=== PATIENT | male | born 1975 | race Caucasian/White ===

== ENCOUNTER 2019-12-19 19:25 | Emergency (ER) | payer BC ==
[~2019-12-19] VITALS: Ht 177.5 cm; Wt 77.2 kg
[~2019-12-19 19:25] MED LIST: AMIT100T2 PO; BNZ20T PO; CPR500T PO; DOXY100C2 PO; LEVO500T69 PO; PROP60CA17 PO; SULF1TAB38 PO; SUMA100T2 PO; TRM50T PO
[2019-12-19] MEDS ORDERED: fentaNYL INJECTION 100 MCG/2 ML AMP IVP ONE (19:45)
[2019-12-19] MEDS ORDERED: CLINDAMYCIN 900 MG/50 ML IVPB 50 ML IV ONE (19:45)
[2019-12-19] MEDS ORDERED: LIDOCAINE 1% INJ 20 ML 20 ML VIAL INJ ONE (19:45)
[2019-12-19 19:51] LABS: BASOPHILS % (AUTO) 0 % (0-10); EOSINOPHILS # (AUTO) 0.2 10^3/uL (0.0-0.3); EOSINOPHILS % (AUTO) 2 % (0-10); HEMATOCRIT 41 % (40-54); HEMOGLOBIN 14.2 G/DL (13.3-17.7); LYMPHOCYTES # (AUTO) 1.7 X 10^3 (1.0-4.0); LYMPHOCYTES % (AUTO) 16 % (12-44); MEAN CORPUSCULAR HEMOGLOBIN 28 PG (25-34); MEAN CORPUSCULAR HGB CONC 35 G/DL (32-36); MEAN CORPUSCULAR VOLUME 81 FL (80-99); MEAN PLATELET VOLUME 8.8 FL (7.4-10.4); MONOCYTES # (AUTO) 0.9 X 10^3 (0.0-1.0); MONOCYTES % (AUTO) 9 % (0-12); NEUTROPHILS # (AUTO) 7.6 X 10^3 (1.8-7.8); NEUTROPHILS % (AUTO) 73 % (42-75); PLATELET COUNT 312 10^3/uL (130-400); RED CELL DISTRIBUTION WIDTH 14.2 % (10.0-14.5); WHITE BLOOD COUNT 10.4 10^3/uL (4.3-11.0)
--- NOTE | 2019-12-19 19:53 | ED Integumentary General ---
General Chief Complaint: Skin/Wound Problems Stated Complaint: INFECTION IN LEFT LEG Nursing Triage Note: on evening pt noticed wound to LLE, was seen on wednesday at [facility], was given bactrim, saw PCP was on Wednesday and was told that the current abt would take care of wound, swelling has now doubled in size Source: patient Exam Limitations: no limitations History of Present Illness Date Seen by Provider: Dec 19, 2019 Time Seen by Provider: 19:51 Initial Comments To ER with left lower extremity wound. No known cause, this was seen at the [facility], given Bactrim. Followed up with primary care yesterday and told that it should be getting better, he is now been on Bactrim for 4 days with only worsening. Afebrile. Timing/Duration: just prior to arrival Severity: moderate Associated Symptoms: rash Allergies and Home Medications Allergies Coded Allergies: Penicillins (Unverified Allergy, Unknown, 03/14/12) Home Medications Amitriptyline Hcl 100 Mg Tablet, 0.5 EACH PO DAILY, (Reported) Benazepril Hcl 20 Mg Tablet, 1 EACH PO DAILY, (Reported) Doxycycline Hyclate 100 Mg Tablet, 100 MG PO BID Prescribed by: YUDELKA HEART on 12/19/192037 Levofloxacin 500 Mg Tab, 1 EACH PO DAILY Prescribed by: OSCAR AHUMADA on 10/01/142108 Propranolol Hcl 60 Mg Cap.sa.24h, 60 MG PO DAILY, (Reported) Sumatriptan Succinate 100 Mg Tablet, 0 PO UD, (Reported) 1 TAB AT ONSET OF BULLARD; MAY REPEAT X 1 IN 2 HOURS Patient Home Medication List Home Medication List Reviewed: Yes Review of Systems Review of Systems Constitutional: see HPI; No chills EENTM: see HPI Respiratory: no symptoms reported Cardiovascular: no symptoms reported Genitourinary: no symptoms reported Musculoskeletal: no symptoms reported Skin: no symptoms reported Psychiatric/Neurological: No Symptoms Reported Endocrine: No Symptoms Reported Past Rbpyerl-Tmvzlz-Qcqkww Hx Patient Social History Alcohol Use: Denies Use Recreational Drug Use: No 2nd Hand Smoke Exposure: No Recent Foreign Travel: No Contact w/Someone Who Travel: No Recent Infectious Disease Expo: No Recent Hopitalizations: No Immunizations Up To Date Tetanus Booster (TDap): Less than 5yrs Seasonal Allergies Seasonal Allergies: No Past Medical History Surgeries: Yes (R hand, L knee) Respiratory: No Cardiac: No Neurological: No Genitourinary: No Gastrointestinal: No Musculoskeletal: No Endocrine: No HEENT: No Cancer: No Psychosocial: No Integumentary: No Blood Disorders: No Physical Exam Vital Signs Vital Signs - First Documented 12/19/19 19:32 Temp 37.3 Pulse 92 Resp 18 B/P (MAP) 131/89 (103) Capillary Refill : Less Than 3 Seconds General Appearance: WD/WN, no apparent distress Neck: non-tender, full range of motion Respiratory: no respiratory distress, no accessory muscle use Extremities: normal range of motion, non-tender Neurologic/Psychiatric: alert, normal mood/affect, oriented x 3 Skin: normal color, warm/dry Skin Problem Location: lower extremities (left lateral lower extremity there is an area of erythema that is about hand sized and within this is a 3 cm circular area of fluctuance.) Skin Problem Character: abscess Procedures/Interventions I&D : Blade Size: 11 Packing/Drain: Plain Packing 1/2 Progress Moderate amount of purulent bloody material expressed Progress/Results/Core Measures Results/Orders Lab Results Laboratory Tests Test 12/19/19 19:42 Range/Units White Blood Count 10.4 4.3-11.0 10^3/uL Red Blood Count 5.01 4.35-5.85 10^6/uL Hemoglobin 14.2 13.3-17.7 G/DL Hematocrit 41 40-54 % Mean Corpuscular Volume 81 80-99 FL Mean Corpuscular Hemoglobin 28 25-34 PG Mean Corpuscular Hemoglobin Concent 35 32-36 G/DL Red Cell Distribution Width 14.2 10.0-14.5 % Platelet Count 312 130-400 10^3/uL Mean Platelet Volume 8.8 7.4-10.4 FL Neutrophils (%) (Auto) 73 42-75 % Lymphocytes (%) (Auto) 16 12-44 % Monocytes (%) (Auto) 9 0-12 % Eosinophils (%) (Auto) 2 0-10 % Basophils (%) (Auto) 0 0-10 % Neutrophils # (Auto) 7.6 1.8-7.8 X 10^3 Lymphocytes # (Auto) 1.7 1.0-4.0 X 10^3 Monocytes # (Auto) 0.9 0.0-1.0 X 10^3 Eosinophils # (Auto) 0.2 0.0-0.3 10^3/uL Basophils # (Auto) 0.0 0.0-0.1 10^3/uL Sodium Level 134 L 135-145 MMOL/L Potassium Level 4.0 3.6-5.0 MMOL/L Chloride Level 97 L 98-107 MMOL/L Carbon Dioxide Level 26 21-32 MMOL/L Anion Gap 11 5-14 MMOL/L Blood Urea Nitrogen 12 7-18 MG/DL Creatinine 1.25 0.60-1.30 MG/DL Estimat Glomerular Filtration Rate > 60 BUN/Creatinine Ratio 10 Glucose Level 95 70-105 MG/DL Lactic Acid Level 0.91 0.50-2.00 MMOL/L Calcium Level 9.8 8.5-10.1 MG/DL Corrected Calcium 9.6 8.5-10.1 MG/DL Total Bilirubin 0.5 0.1-1.0 MG/DL Aspartate Amino Transf (AST/SGOT) 52 H 5-34 U/L Alanine Aminotransferase (ALT/SGPT) 66 H 0-55 U/L Alkaline Phosphatase 200 H 40-136 U/L Total Protein 8.2 6.4-8.2 GM/DL Albumin 4.3 3.2-4.5 GM/DL My Orders Orders - YUDELKA HEART APRN Cbc With Automated Diff (12/19/19 19:45) Comprehensive Metabolic Panel (12/19/19 19:45) Ed Iv/Invasive Line Start (12/19/19 19:45) Blood Culture (12/19/19 19:45) Lactic Acid Analyzer (12/19/19 19:45) Fentanyl Injection (Sublimaze Injection (12/19/19 19:45) Clindamycin 900 Mg/50 Ml Ivpb (Cleocin P (12/19/19 19:45) Lidocaine 1% Inj 20 Ml (Xylocaine 1% Inj (12/19/19 19:45) Wound Culture (12/19/19 19:45) Vancomycin Injection (Vancomycin Injecti (12/19/19 20:00) Vancomycin Injection (Vancomycin Injecti (12/19/19 20:30) Medications Given in ED Current Medications Medications Dose Ordered Sig/Stephon Route Start Time Stop Time Status Last Admin Dose Admin Fentanyl Citrate 50 mcg ONCE ONCE IVP 12/19/19 19:45 12/19/19 19:47 DC 12/19/19 19:53 50 MCG Vancomycin HCl 1500 mg/Sodium Chloride 500 ml @ 257.5 mls/ hr ONCE ONCE IV 12/19/19 20:30 12/19/19 22:26 12/19/19 20:30 257.5 MLS/HR Vital Signs/I&O 12/19/19 19:32 Temp 37.3 Pulse 92 Resp 18 B/P (MAP) 131/89 (103) Blood Pressure Mean: 103 Departure Communication (Admissions) 2033-He is not febrile tachycardic or hypotensive. His labs do not support sepsis. I did incision and drainage of the wound, packed it with half-inch plain packing after irrigating the cavity with 60 cc of sterile saline. Covered with gauze. He is getting 1.5 g vancomycin IV and I will discharge him to home alvin nging the Bactrim to the doxycycline. He agrees to return tomorrow night for wound check and if no improvement he will need to be admitted for IV antibiotics. Impression Primary Impression: Abscess Additional Impression: Cellulitis Qualified Codes: L03.012 - Cellulitis of left finger Disposition: HOME, SELF-CARE Condition: Stable Departure-Patient Inst. Decision time for Depature: 20:35 Referrals: CHARLES HERNANDEZ DO (PCP/Family) Primary Care Physician Patient Instructions: Abscess Incision and Drainage (DC) Add. Discharge Instructions: 1. Return tomorrow evening about 24 hours from now for wound check no charge. When you check and told them that you just need a wound check and were seen here tonight. If you fail to improve between now and then you may need to be admitted for continued IV antibiotics. Stop the Bactrim, start the doxycycline starting tomorrow. All discharge instructions reviewed with patient and/or family. Voiced understanding. Scripts Doxycycline Hyclate (Doxycycline Hyclate) 100 Mg Tablet 100 MG PO BID, #20 TAB 0 Refills Prov: YUDELKA HEART APRN 12/19/19 Work/School Note: Work Release Form Date Seen in the Emergency Department: Dec 19, 2019 Return to Work: Dec 20, 2019 YUDELKA HEART APRN Dec 19, 2019 19:53
[2019-12-19] MEDS ORDERED: VANCOMYCIN INJECTION 1,000 MG in NS (IVPB) 250 ML IV SCH (20:00)
[2019-12-19 20:10] LABS: ALANINE AMINOTRANSFERASE 66 U/L (0-55); ALBUMIN 4.3 GM/DL (3.2-4.5); ALKALINE PHOSPHATASE 200 U/L (40-136); BILIRUBIN,TOTAL 0.5 MG/DL (0.1-1.0); BUN/CREATININE RATIO 10; CALCIUM 9.8 MG/DL (8.5-10.1); CARBON DIOXIDE 26 MMOL/L (21-32); CHLORIDE 97 MMOL/L (98-107); CREATININE SERUM 1.25 MG/DL (0.60-1.30); GFR ESTIMATED > 60; GLUCOSE 95 MG/DL (70-105); SODIUM 134 MMOL/L (135-145); TOTAL PROTEIN 8.2 GM/DL (6.4-8.2)
--- NOTE | 2019-12-19 20:15 | NUR ---
assisted provider with wound care, wound culture obtained and sent to lab at this time
[2019-12-19] MEDS ORDERED: VANCOMYCIN INJECTION 1,500 MG in NS IV 500 ML 500 ML IV ONE (20:30)
[2019-12-19] MEDS ORDERED: DOXY100T2 PO (20:38)
--- NOTE | 2019-12-19 20:54 | NUR ---
report given to Ly HIGH
[2019-12-19 22:44] VITALS: BP 120/89
== END 2019-12-19 22:44 | disposition home or self-care (01) ==
LOC: EDUNIT# 19:25 → ER 19:28
DX: L02.512 Cutaneous abscess of left hand (principal); L03.012 Cellulitis of left finger; Z88.0 Allergy status to penicillin
CPT/HCPCS: 36415; 80053; 83605; 85025; 87040; 87070; 87077; 87186; 87205; 96365; 96366; 96375

== ENCOUNTER 2019-12-20 18:16 | Emergency (ER) | payer BC ==
[~2019-12-20] VITALS: Ht 180 cm; Wt 77.0 kg
[~2019-12-20 18:16] MED LIST changes: +DOXY100T2 PO
--- NOTE | 2019-12-20 18:43 | ED Suture Removal/Wound Check ---
Suture/Wound Re-check Suture Removal/Wound Recheck : Suture Removal/Wound Recheck: Packing removed Progress Patient seen at 18:25. Chart from yesterday's visit was reviewed. Patient presents for a wound check after having I&D of an abscess on the left lateral calf yesterday. Preliminary cultures show staph aureus with no sensitivity available yet. Patient is doing well. He has decreased pain and is afebrile. Packing needs to be removed today. He was switched from Bactrim to doxycycline during his visit yesterday. Packing was removed during this visit. Anabolic ointment was applied to keep dressing from sticking to the wound. 4 x 4 gauze was applied and wrapped with Coban. Return precautions were discussed with the patient. See discharge instructions. General Appearance: WD/WN, no apparent distress Skin Exam: warm/dry, other (open incision at the center of the abscess with a packing wick protruding. There is erythema and petechiae surrounding the wound. Erythema has not spread beyond the marked boundaries.) Physical Exam Vital Signs Vital Signs - First Documented 12/20/19 18:20 Temp 36.8 Pulse 90 Resp 16 B/P (MAP) 133/93 (106) Pulse Ox 95 O2 Delivery Room Air Capillary Refill : Less Than 3 Seconds General Appearance: WD/WN, no apparent distress Departure Impression Primary Impression: Wound check, abscess Disposition: 01 HOME, SELF-CARE Condition: Improved Departure-Patient Inst. Decision time for Depature: 18:40 Referrals: CHARLES HERNANDEZ DO (PCP/Family) Primary Care Physician Patient Instructions: Abscess Incision and Drainage (DC) Add. Discharge Instructions: Keep the wound covered until it quits draining. Also cover in dirty or sweaty environments. Use warm compresses or chlorhexidine soap soaks for 15-20 minutes 2 or 3 times a day to encourage draining. You may discontinue this when wound closes. Complete the entire course of doxycycline as prescribed. You may also resume the Bactrim as previously prescribed for double coverage. Elevating your leg to the level of your heart will be helpful in reducing pain and swelling. Return to care if you have worsening symptoms or are not improving as expected or if you develop new symptoms such as fever. Call your doctor or return to care if you have any other questions or concerns. All discharge instructions reviewed with patient and/or family. Voiced understanding. LINDY DIAZ MD Dec 20, 2019 18:43
[2019-12-20 18:48] VITALS: BP 133/93
== END 2019-12-20 18:48 | disposition home or self-care (01) ==
LOC: EDUNIT# 18:16 → ER 18:18
DX: L02.416 Cutaneous abscess of left lower limb (principal)
CPT/HCPCS: 99282

== ENCOUNTER → 2021-04-15 | Outpatient (CLI) | payer BC ==
--- NOTE | 2021-04-15 16:38 | Diagnostic Imaging Report ---
PROCEDURE: US right lower extremity venous. TECHNIQUE: Multiple real-time grayscale images were obtained over the right lower extremity in various projections. Additional spectral analysis and color Doppler duplex images were also obtained. INDICATION: Right calf pain post ACL surgery one week ago. FINDINGS: There is no evidence of right lower extremity DVT. Right lower extremity deep venous system shows normal compressibility with normal response to augmentation and Valsalva. No fluid collection or mass is detected. IMPRESSION: No evidence of right lower extremity DVT. Dictated by: Dictated on workstation # [id number]
== END ==
LOC: RAD 16:00
PROVIDERS: ATTEND Orthopaedic Surgery
DX: M79.661 Pain in right lower leg (principal); Z86.718 Personal history of other venous thrombosis and embolism; Z98.890 Other specified postprocedural states

== ENCOUNTER 2023-06-20 15:59 | Emergency (ER) | payer BC ==
[~2023-06-20] VITALS: Ht 180 cm; Wt 72.5 kg
[2023-06-20 16:13] VITALS: BP 136/100
--- NOTE | 2023-06-20 16:18 | ED EENT ---
History of Present Illness General Stated Complaint: DEBRI IN LEFT EYE Source: patient, family () Exam Limitations: no limitations History of Present Illness Date Seen by Provider: Jun 20, 2023 Time Seen by Provider: 16:10 Initial Comments 48-year-old male presents for left eye pain, irritation. 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 Does not wear contacts or glasses. Vision is normal she says irritation of his eye. He feels like it is in the upper portion of his eye. All other systems reviewed and negative except documented per HPI. Voice recognition software was used to help create this chart Allergies and Home Medications Allergies Coded Allergies: Penicillins (Unverified Allergy, Unknown, 03/14/12) Patient Home Medication List Home Medication List Reviewed: Yes Amitriptyline Hcl (Amitriptyline Hcl) 100 Mg Tablet, 0.5 EACH PO DAILY, (Reported) Entered as Reported by: ANA HOWELL on 03/14/12 183 Benazepril Hcl (Lotensin 20 Mg) 20 Mg Tablet, 1 EACH PO DAILY, (Reported) Entered as Reported by: ANA HOWELL on 03/14/12 183 Doxycycline Hyclate (Doxycycline Hyclate) 100 Mg Tablet, 100 MG PO BID Prescribed by: YUDELKA HEART on 12/19/192037 Levofloxacin (Levaquin 500 Mg) 500 Mg Tab, 1 EACH PO DAILY Prescribed by: OSCAR AHUMADA on 10/01/142108 Propranolol Hcl (Propranolol Hcl) 60 Mg Cap.sa.24h, 60 MG PO DAILY, (Reported) Entered as Reported by: ANA HOWELL on 03/14/12 183 Sumatriptan Succinate (Imitrex) 100 Mg Tablet, 0 PO UD, (Reported) Entered as Reported by: MARY LOU GASTELUM on 10/01/14 184 Review of Systems Review of Systems Constitutional: see HPI Past Qdopqnd-Wqghoi-Mppmac Hx Patient Social History Tobacco Use?: No Use of E-Cig and/or Vaping dev: No Substance use?: No Alcohol Use?: No Immunizations Up To Date Tetanus Booster (TDap): Less than 5yrs Seasonal Allergies Seasonal Allergies: No Past Medical History Surgeries: Yes (R hand, L knee) Respiratory: No Cardiac: No Neurological: No Genitourinary: No Gastrointestinal: No Musculoskeletal: No Endocrine: No HEENT: No Cancer: No Psychosocial: No Integumentary: No Blood Disorders: No Visual Acuity : Eye Location: Bilaterally (20/40) Vision Acuity Degree: Physical Exam Vital Signs Vital Signs - First Documented 06/20/23 16:13 Temp 36.0 Pulse 78 Resp 16 B/P (MAP) 136/100 (112) Pulse Ox 99 O2 Delivery Room Air Height, Weight, BMI Height: 5'11" Weight: 165lbs. oz. 74.945645cx; 23.00 BMI Method:Stated General Appearance: WD/WN, no apparent distress Eyes: left eye other (Sclera is injected on the left side. Fluorescein staining reveals a corneal abrasion medial aspect of the left eye. His pain is completely relieved with tetracaine eyedrops. Visual acuity on the left 20/50, right 20/50, bilateral 20/40) Cardiovascular: regular rate, rhythm, no murmur Respiratory: chest non-tender, lungs clear, normal breath sounds Skin: normal color, warm/dry Progress/Results/Core Measures Results/Orders My Orders Orders - ALVINOWATSON DE LEON DO Tetracaine 0.5% Ophth Soln (Tetravisc 0. (06/20/23 16:30) Fluorescein Ophthalmic Strips (Fluoresce (06/20/23 16:30) Tetracaine 0.5% Ophth Saima Sdv (Tetracai (06/20/23 16:22) Vital Signs/I&O 06/20/23 16:13 Temp 36.0 Pulse 78 Resp 16 B/P (MAP) 136/100 (112) Pulse Ox 99 O2 Delivery Room Air Departure Communication (Admissions) Patient is hemodynamically stable. Exam proves corneal abrasion which was the initial suspicion. Visual acuities are normal for him and equal bilaterally. Pain is completely relieved with tetracaine eyedrops. The be discharged home with antibiotic eyedrops. Tetanus shot is up-to-date. Impression Primary Impression: Corneal abrasion Qualified Codes: S05.02XA - Injury of conjunctiva and corneal abrasion without foreign body, left eye, initial encounter Disposition: HOME, SELF-CARE Condition: Stable Departure-Patient Inst. Referrals: DANICA MENON MD (PCP/Family) Primary Care Physician Patient Instructions: Corneal Abrasion (DC) Add. Discharge Instructions: You are seen in the emergency department for left eye pain. As discussed you have an abrasion to the middle part of her left eye. Use the antibiotic drops as prescribed. Use ibuprofen and Tylenol as needed for pain. Return to the emergency department for any severe concerns. Follow-up with your primary doctor for any nonemergent needs. Scripts levoFLOXacin (levoFLOXacin) 1.5 % Drops 2 ML OS Q2H for 5 Days, #1 EACH 2 drops in left eye every 2 hours while aweake Prov: WATSON DE OLIVEIRA DO 06/20/23 WATSON DE OLIVEIRA DO Jun 20, 2023 16:18
[2023-06-20] MEDS ORDERED: TETRACAINE 0.5% OPHTH SOLN 4 ML BTL (SINGLE DOSE ONLY) ONE (16:22)
[2023-06-20] MEDS ORDERED: TETRACAINE 0.5% OPHTH SOLN 5 ML BTL OP ONE (16:30)
[2023-06-20] MEDS ORDERED: FLUORESCEIN 1 MG OPHTHALMIC STRIPS OP ONE (16:30)
[2023-06-20] MEDS ORDERED: LEVO5DRO20 OS (16:33)
[2023-06-21] MEDS ORDERED: OFLO5DRO8 OP (09:55)
== END 2023-06-20 16:44 | disposition home or self-care (01) ==
LOC: EDUNIT# 15:59 → ER 16:02
DX: S05.02XA Injury of conjunctiva and corneal abrasion without foreign body, left eye, initial encounter (principal); X58.XXXA Exposure to other specified factors, initial encounter; Y92.009 Unspecified place in unspecified non-institutional (private) residence as the place of occurrence of the external cause; Y99.0 Civilian activity done for income or pay